=== PATIENT | male | born 1945 | race Caucasian/White ===

== ENCOUNTER → 2018-04-27 | Outpatient (CLI) | payer MEDICARE, BC | END | disposition home or self-care (01) | LOC: LAB SHORT 08:05 → PLD 08:05 | DX: D48.5 Neoplasm of uncertain behavior of skin (principal) | CPT/HCPCS: 88305 ==

== ENCOUNTER → 2019-02-17 | Outpatient (CLI) | payer MEDICARE, BC | LOC: PLD 11:48 → LAB SHORT 11:48 | DX: C44.41 Basal cell carcinoma of skin of scalp and neck (principal) | CPT/HCPCS: 88305 ==

== ENCOUNTER 2019-05-07 07:50 | Inpatient (IN) | payer OTHER, MEDICARE, BC ==
[~2019-05-07] VITALS: Ht 182.9 cm; Wt 102.9 kg
[2019-05-07 08:30] LABS: BASOPHILS ABSOLUTE AUTO 0.04 K/mm3 (0.00-0.23); BASOPHILS PERCENT AUTO 0 % (0-2); EOSINOPHILS ABSOLUTE AUTO 0.18 K/mm3 (0.00-0.68); EOSINOPHILS PERCENT AUTO 2 % (0-6); Hematocrit 38.5 % (37.0-53.0); Hemoglobin 13.6 g/dL (13.5-17.5); IMMATURE GRAN ABSOLUTE AUTO 0.04 K/mm3 (0.00-0.10); IMMATURE GRAN PERCENT AUTO 0 % (0-1); LYMPHOCYTES ABSOLUTE AUTO 0.78 K/mm3 (0.84-5.20); LYMPHOCYTES PERCENT AUTO 8 % (21-46); MONOCYTES ABSOLUTE AUTO 0.83 K/mm3 (0.16-1.47); MONOCYTES PERCENT AUTO 9 % (4-13); Mean Corpuscular HGB 30.6 pg (26.0-34.0); Mean Corpuscular HGB Conc 35.3 g/dL (31.5-36.5); Mean Corpuscular Volume 87 fL (80-100); NEUTROPHILS ABSOLUTE AUTO 7.91 K/mm3 (1.96-9.15); NEUTROPHILS PERCENT AUTO 81 % (41-73); Platelet Count 144 K/mm3 (150-400); RDW Coefficient Variation 12.9 % (11.7-14.2); RDW Standard Deviation 40.5 fL (35.1-46.3); Red Blood Cell Count 4.45 M/mm3 (4.30-5.90); White Blood Cell Count 9.78 K/mm3 (4.00-11.30)
[2019-05-07 08:44] LABS: Influenza A Negative (NEGATIVE); Influenza B Negative (NEGATIVE)
[2019-05-07 08:51] LABS: Alanine Aminotransfer (ALT/SGP 19 U/L (12-78); Albumin, Blood 3.3 g/dL (3.4-5.0); Alk Phos 51 U/L (50-136); Anion Gap 8 mmol/L (6-16); Aspartate Aminotrans (AST/SGOT 35 U/L (12-37); Bilirubin, Total 1.2 mg/dL (0.1-1.0); Blood Urea Nitrogen 18 mg/dL (8-24); Bun/Creatinine Ratio 21.6 (12.0-20.0); CO2, Blood 26 mmol/L (21-32); Calcium, Blood 8.2 mg/dL (8.5-10.1); Chloride, Blood 105 mmol/L (98-108); Creatinine, Blood 0.83 mg/dL (0.60-1.20); Globulin, Blood 3.3 g/dL (2.2-4.0); Glomerular Filtration Rate >60 (60-); Glucose, Blood 163 mg/dL (70-99); International Normalized Ratio 1.07; Potassium, Blood 3.3 mmol/L (3.5-5.5); Prothrombin Time Results 11.4 Sec (9.7-11.5); Sodium, Blood 139 mmol/L (136-145); Total Protein, Blood 6.6 g/dL (6.4-8.2)
[2019-05-07] MEDS ORDERED: CARV25 PO (12:41)
[2019-05-07] MEDS ORDERED: CLOP75 PO (12:41)
[2019-05-07] MEDS ORDERED: ASPIR 8181 MG PO (12:41)
[2019-05-07] MEDS ORDERED: SERT100 PO (12:42)
[2019-05-07] MEDS ORDERED: PROB500 PO (12:42)
[2019-05-07] MEDS ORDERED: EZET10 PO (12:42)
[2019-05-07] MEDS ORDERED: Isosorbide Mono30 MG PO (12:42)
[2019-05-07] MEDS ORDERED: FURO40 PO (12:42)
[2019-05-07] MEDS ORDERED: Vitamin D2000 UNIT PO (12:43)
[2019-05-07] MEDS ORDERED: B Complex-Foli1 EACH PO (12:43)
[2019-05-07] MEDS ORDERED: UBID10 PO (12:43)
[2019-05-07 13:24] LABS: International Normalized Ratio 1.12; Prothrombin Time Results 11.9 Sec (9.7-11.5)
[2019-05-07] MEDS ORDERED: ATOR80 PO (14:34)
[2019-05-07] MEDS ORDERED: NITR.4SL SL (14:37)
[2019-05-07 18:19] LABS: Adenovirus Not Detected (NOT DETECT); Bordetella pertussis Not Detected (NOT DETECT); Chlamydophila pneumoniae Not Detected (NOT DETECT); Coronavirus 229E Not Detected (NOT DETECT); Coronavirus HKU1 Not Detected (NOT DETECT); Coronavirus NL63 Not Detected (NOT DETECT); Coronavirus OC43 Not Detected (NOT DETECT); Human Metapneumovirus Not Detected (NOT DETECT); Human Rhinovirus/Enterovirus Not Detected (NOT DETECT); Influenza A Not Detected (NOT DETECT); Influenza A/2009-H1 Not Detected (NOT DETECT); Influenza A/H1 Not Detected (NOT DETECT); Influenza A/H3 Not Detected (NOT DETECT); Influenza B Not Detected (NOT DETECT); Mycoplasma pneumoniae Not Detected (NOT DETECT); Parainfluenza Virus 1 Not Detected (NOT DETECT); Parainfluenza Virus 2 Not Detected (NOT DETECT); Parainfluenza Virus 3 Not Detected (NOT DETECT); Parainfluenza Virus 4 Not Detected (NOT DETECT); Respiratory Syncytial Virus Detected (NOT DETECT)
--- NOTE | 2019-05-07 18:29 | NUR ---
SHIFT SUMMARY ED ADMIT THIS AFTERNOON. PATIENT SETTLED INTO ROOM THEN TAKEN TO IRRIGATION TEACHER FOR ANGIOGRAM. PATIENT DETERMINED TO NEED BYPASS SURGERY DURING PROCEDURE. COBRA TRANSFER INITIATED. PATIENT HAS TR BAND ON RIGHT RADIAL ACCESS SITE, CHARGE NURSE MANAGING DEFLATION. NO SIGNS OF HEMATOMA. PATIENT GIVEN SL NITRO X1 FOR CHEST/EPIGASTRIC PAIN WITH GOOD RESULT. PATIENT TRANSFERD TO [facility] VIA [facility] TRANSPORT. REPORT CALLED TO DOUGLAS BENITEZ AT [facility].
--- NOTE | 2019-05-07 18:39 | NUR ---
The pt complained of epigastric chest burning this evening before eating his dinner. He stated that this is the kind of pain he had with his last heart attack. PTT drawn at 1630 and new orders from pharmacy for heparin gtt were received and started just at the time the patient c/o his chest discomfort. He c/o chest discomfort 8/10 and also feeling like his difficulty breathing was worse than before. His oxgyen delivery was 2 l/min at the time of onset,and increased gradually to 6 l/min to bring his spo2 above 91% to 95%. As his oxgyen increased, his chest discomfort rating decreased from 8/10 to 6/10. EKG was done. HIs was at the bedside. Dr. Wang was fortuitously in the PCU at the time and gave orders for sublingual Nitro, which was given to him after she had seen the EKG. After the administration of nitroglycerin the pts discomfort was decreased to 4/10 and after 15 minutes he reported that it was "nothing to speak of". He also appeared to be breathing much more easily, and the oxygen delivery was decreased to 4 l/min. Transport team arrived at 1810 and the pt was transferred to [place].
== END 2019-05-07 18:10 | disposition short-term general hospital (02) | DRG 280 ==
LOC: ER 07:50 → PCU 09:58
PROVIDERS: Emergency Medicine; ADMIT Hospitalist
PROC: 4A023N7 Measurement of Cardiac Sampling and Pressure, Left Heart, Percutaneous Approach (ICD-10-PCS; principal; 2019-05-07)
PROC: B2111ZZ Fluoroscopy of Multiple Coronary Arteries using Low Osmolar Contrast (ICD-10-PCS; 2019-05-07)
PROC: 4A033BC Measurement of Arterial Pressure, Coronary, Percutaneous Approach (ICD-10-PCS; 2019-05-07)
DX: I21.4 Non-ST elevation (NSTEMI) myocardial infarction (principal); I50.23 Acute on chronic systolic (congestive) heart failure; I11.0 Hypertensive heart disease with heart failure; I25.2 Old myocardial infarction; I25.10 Atherosclerotic heart disease of native coronary artery without angina pectoris; I71.4 Abdominal aortic aneurysm, without rupture; Z87.891 Personal history of nicotine dependence; G47.33 Obstructive sleep apnea (adult) (pediatric); E87.6 Hypokalemia; I44.0 Atrioventricular block, first degree; J40 Bronchitis, not specified as acute or chronic; E11.9 Type 2 diabetes mellitus without complications; Z90.79 Acquired absence of other genital organ(s); Z95.1 Presence of aortocoronary bypass graft
CPT/HCPCS: 0099U; 36415; 71046; 76937; 80053; 83880; 84145; 84484; 85025; 85347; 85610; 85730; 87804; 93005; 93010; 93458; 93571; 96374; 96375; 99152; 99153; 99285-25; A9270-GY; C1769; C1887; C1894; C8929; J0456; J0696; J1644; J1940; J2250; J2920; J3010; J7030; J7050; Q9957; Q9967

== ENCOUNTER 2019-06-11 16:49 | Emergency (ER) | payer OTHER, MEDICARE, BC ==
[~2019-06-11] VITALS: Ht 182.9 cm; Wt 95.2 kg
[~2019-06-11 16:49] MED LIST: ASPIR 8181 MG PO; ATOR80 PO; B Complex-Foli1 EACH PO; CARV25 PO; CLOP75 PO; EZET10 PO; FURO40 PO; Isosorbide Mono30 MG PO; NITR.4SL SL; PROB500 PO; SERT100 PO; UBID10 PO; Vitamin D2000 UNIT PO
[2019-06-11 17:35] LABS: BASOPHILS ABSOLUTE AUTO 0.03 K/mm3 (0.00-0.23); BASOPHILS PERCENT AUTO 0 % (0-2); EOSINOPHILS ABSOLUTE AUTO 0.16 K/mm3 (0.00-0.68); EOSINOPHILS PERCENT AUTO 2 % (0-6); Hematocrit 39.2 % (37.0-53.0); Hemoglobin 12.6 g/dL (13.5-17.5); IMMATURE GRAN ABSOLUTE AUTO 0.03 K/mm3 (0.00-0.10); IMMATURE GRAN PERCENT AUTO 0 % (0-1); LYMPHOCYTES ABSOLUTE AUTO 0.88 K/mm3 (0.84-5.20); LYMPHOCYTES PERCENT AUTO 11 % (21-46); MONOCYTES ABSOLUTE AUTO 1.08 K/mm3 (0.16-1.47); MONOCYTES PERCENT AUTO 13 % (4-13); Mean Corpuscular HGB 29.6 pg (26.0-34.0); Mean Corpuscular HGB Conc 32.1 g/dL (31.5-36.5); Mean Corpuscular Volume 92 fL (80-100); Mean Platelet Volume 10.8 fL (9.1-12.4); NEUTROPHILS ABSOLUTE AUTO 5.86 K/mm3 (1.96-9.15); NEUTROPHILS PERCENT AUTO 73 % (41-73); Platelet Count 231 K/mm3 (150-400); RDW Coefficient Variation 15.8 % (11.7-14.2); RDW Standard Deviation 52.5 fL (35.1-46.3); Red Blood Cell Count 4.25 M/mm3 (4.30-5.90); White Blood Cell Count 8.04 K/mm3 (4.00-11.30)
[2019-06-11 17:48] LABS: Alanine Aminotransfer (ALT/SGP 12 U/L (12-78); Albumin, Blood 3.4 g/dL (3.4-5.0); Albumin/Globulin Ratio 1.1 (0.8-1.8); Alk Phos 62 U/L (50-136); Anion Gap 8 mmol/L (6-16); Aspartate Aminotrans (AST/SGOT 13 U/L (12-37); Bilirubin, Total 0.9 mg/dL (0.1-1.0); Blood Urea Nitrogen 16 mg/dL (8-24); Bun/Creatinine Ratio 20.6 (12.0-20.0); CO2, Blood 24 mmol/L (21-32); Calcium, Blood 9.2 mg/dL (8.5-10.1); Chloride, Blood 105 mmol/L (98-108); Creatinine, Blood 0.78 mg/dL (0.60-1.20); Globulin, Blood 3.2 g/dL (2.2-4.0); Glomerular Filtration Rate >60 (60-); Glucose, Blood 122 mg/dL (70-99); Potassium, Blood 4.4 mmol/L (3.5-5.5); Sodium, Blood 137 mmol/L (136-145); Total Protein, Blood 6.6 g/dL (6.4-8.2); Troponin I <0.015 ng/mL (0.000-0.040)
[2019-06-11] MEDS ORDERED: Lasix20 MG PO (18:46)
[2019-06-11] MEDS ORDERED: K-Dur10 MEQ PO (18:46)
== END 2019-06-11 19:18 | disposition home or self-care (01) ==
LOC: ER 16:49
PROVIDERS: Emergency Medicine
DX: I48.91 Unspecified atrial fibrillation (principal); I25.10 Atherosclerotic heart disease of native coronary artery without angina pectoris; I25.2 Old myocardial infarction; I50.9 Heart failure, unspecified; J45.909 Unspecified asthma, uncomplicated; Z79.899 Other long term (current) drug therapy; Z79.01 Long term (current) use of anticoagulants; Z79.82 Long term (current) use of aspirin; Z95.1 Presence of aortocoronary bypass graft
CPT/HCPCS: 36415; 71046; 80053; 83880; 84484; 85025; 93005; 93010; 96374; 99285-25; J1940

== ENCOUNTER 2019-06-23 09:33 | Emergency (ER) | payer OTHER, MEDICARE, BC ==
[~2019-06-23] VITALS: Ht 182.9 cm; Wt 97.5 kg
[~2019-06-23 09:33] MED LIST changes: +K-Dur10 MEQ PO; +Lasix20 MG PO
[2019-06-23 10:04] LABS: BASOPHILS ABSOLUTE AUTO 0.04 K/mm3 (0.00-0.23); BASOPHILS PERCENT AUTO 0 % (0-2); EOSINOPHILS ABSOLUTE AUTO 0.07 K/mm3 (0.00-0.68); EOSINOPHILS PERCENT AUTO 1 % (0-6); Hematocrit 41.6 % (37.0-53.0); Hemoglobin 13.1 g/dL (13.5-17.5); IMMATURE GRAN ABSOLUTE AUTO 0.07 K/mm3 (0.00-0.10); IMMATURE GRAN PERCENT AUTO 1 % (0-1); LYMPHOCYTES ABSOLUTE AUTO 0.52 K/mm3 (0.84-5.20); LYMPHOCYTES PERCENT AUTO 4 % (21-46); MONOCYTES PERCENT AUTO 7 % (4-13); Mean Corpuscular HGB 28.4 pg (26.0-34.0); Mean Corpuscular HGB Conc 31.5 g/dL (31.5-36.5); Mean Corpuscular Volume 90 fL (80-100); Mean Platelet Volume 10.9 fL (9.1-12.4); NEUTROPHILS ABSOLUTE AUTO 11.81 K/mm3 (1.96-9.15); NEUTROPHILS PERCENT AUTO 88 % (41-73); Platelet Count 194 K/mm3 (150-400); RDW Coefficient Variation 14.6 % (11.7-14.2); RDW Standard Deviation 47.9 fL (35.1-46.3); Red Blood Cell Count 4.62 M/mm3 (4.30-5.90); White Blood Cell Count 13.51 K/mm3 (4.00-11.30)
[2019-06-23] MEDS ORDERED: ELIQUIS5 MG PO (10:09)
[2019-06-23] MEDS ORDERED: EZET10 PO (10:09)
[2019-06-23] MEDS ORDERED: Crestor40 MG PO (10:10)
[2019-06-23] MEDS ORDERED: ERGO400 (10:10)
[2019-06-23] MEDS ORDERED: FOLI1 PO (10:10)
[2019-06-23] MEDS ORDERED: FERSU300 PO (10:10)
[2019-06-23] MEDS ORDERED: ZINC15 (10:11)
[2019-06-23] MEDS ORDERED: ASCO500 (10:11)
[2019-06-23] MEDS ORDERED: CYAN500 (10:11)
[2019-06-23] MEDS ORDERED: LASIX40 MG PO (10:13)
[2019-06-23] MEDS ORDERED: POTA8 (10:13)
[2019-06-23] MEDS ORDERED: Amiodarone HCl200 MG PO (10:14)
[2019-06-23 10:17] LABS: Troponin I <0.015 ng/mL (0.000-0.040)
[2019-06-23 10:18] LABS: Alanine Aminotransfer (ALT/SGP 18 U/L (12-78); Albumin, Blood 3.7 g/dL (3.4-5.0); Albumin/Globulin Ratio 1.2 (0.8-1.8); Alk Phos 58 U/L (50-136); Anion Gap 9 mmol/L (6-16); Aspartate Aminotrans (AST/SGOT 21 U/L (12-37); Blood Urea Nitrogen 17 mg/dL (8-24); Bun/Creatinine Ratio 17.8 (12.0-20.0); CO2, Blood 24 mmol/L (21-32); Calcium, Blood 8.8 mg/dL (8.5-10.1); Chloride, Blood 105 mmol/L (98-108); Creatinine, Blood 0.96 mg/dL (0.60-1.20); Glomerular Filtration Rate >60 (60-); Glucose, Blood 140 mg/dL (70-99); Potassium, Blood 3.8 mmol/L (3.5-5.5); Sodium, Blood 138 mmol/L (136-145); Total Protein, Blood 6.7 g/dL (6.4-8.2)
[2019-06-24] MEDS ORDERED: OXYC5 (11:59)
[2019-06-24] MEDS ORDERED: FUROSEMIDE20 MG PO (13:55)
[2019-06-24] MEDS ORDERED: METOPROLOL TART25 MG PO (13:56)
[2019-06-24] MEDS ORDERED: ROSUVASTATIN CA40 MG PO (13:56)
== END 2019-06-23 14:03 | disposition home or self-care (01) ==
LOC: ER 09:33
PROVIDERS: Emergency Medicine
DX: R07.9 Chest pain, unspecified (principal); Z87.891 Personal history of nicotine dependence; Z95.1 Presence of aortocoronary bypass graft; Z88.8 Allergy status to other drugs, medicaments and biological substances; Z79.899 Other long term (current) drug therapy
CPT/HCPCS: 36415; 71046; 71260; 80053; 83880; 84484; 85025; 93005; 93010; 99285-25; Q9967

== ENCOUNTER 2019-06-24 11:43 | Inpatient (IN) | payer OTHER, MEDICARE, BC ==
[~2019-06-24] VITALS: Ht 180.3 cm; Wt 97.7 kg
[~2019-06-24 11:43] MED LIST changes: +ASCO500; +Amiodarone HCl200 MG PO; +CYAN500; +Crestor40 MG PO; +ELIQUIS5 MG PO; +ERGO400; +FERSU300 PO; +FOLI1 PO; +LASIX40 MG PO; +POTA8; +ZINC15
[2019-06-24] MEDS ORDERED: OXYC5 (11:59)
[2019-06-24 12:19] LABS: BASOPHILS ABSOLUTE AUTO 0.05 K/mm3 (0.00-0.23); BASOPHILS PERCENT AUTO 0 % (0-2); EOSINOPHILS ABSOLUTE AUTO 0.09 K/mm3 (0.00-0.68); EOSINOPHILS PERCENT AUTO 1 % (0-6); Hematocrit 42.5 % (37.0-53.0); Hemoglobin 13.5 g/dL (13.5-17.5); IMMATURE GRAN ABSOLUTE AUTO 0.07 K/mm3 (0.00-0.10); IMMATURE GRAN PERCENT AUTO 1 % (0-1); LYMPHOCYTES ABSOLUTE AUTO 0.61 K/mm3 (0.84-5.20); LYMPHOCYTES PERCENT AUTO 4 % (21-46); MONOCYTES ABSOLUTE AUTO 1.53 K/mm3 (0.16-1.47); MONOCYTES PERCENT AUTO 11 % (4-13); Mean Corpuscular HGB 28.1 pg (26.0-34.0); Mean Corpuscular HGB Conc 31.8 g/dL (31.5-36.5); Mean Corpuscular Volume 89 fL (80-100); Mean Platelet Volume 11.2 fL (9.1-12.4); NEUTROPHILS ABSOLUTE AUTO 12.27 K/mm3 (1.96-9.15); NEUTROPHILS PERCENT AUTO 84 % (41-73); Platelet Count 220 K/mm3 (150-400); RDW Coefficient Variation 14.7 % (11.7-14.2); RDW Standard Deviation 47.4 fL (35.1-46.3); White Blood Cell Count 14.62 K/mm3 (4.00-11.30)
[2019-06-24 12:28] LABS: Alanine Aminotransfer (ALT/SGP 18 U/L (12-78); Albumin, Blood 3.6 g/dL (3.4-5.0); Albumin/Globulin Ratio 1.1 (0.8-1.8); Alk Phos 62 U/L (50-136); Anion Gap 8 mmol/L (6-16); Aspartate Aminotrans (AST/SGOT 20 U/L (12-37); Bilirubin, Total 0.8 mg/dL (0.1-1.0); Blood Urea Nitrogen 16 mg/dL (8-24); Bun/Creatinine Ratio 14.7 (12.0-20.0); CO2, Blood 27 mmol/L (21-32); Chloride, Blood 101 mmol/L (98-108); Creatinine, Blood 1.09 mg/dL (0.60-1.20); Globulin, Blood 3.3 g/dL (2.2-4.0); Glomerular Filtration Rate >60 (60-); Glucose, Blood 167 mg/dL (70-99); Potassium, Blood 3.7 mmol/L (3.5-5.5); Sodium, Blood 136 mmol/L (136-145); Total Protein, Blood 6.9 g/dL (6.4-8.2); Troponin I <0.015 ng/mL (0.000-0.040)
[2019-06-24] MEDS ORDERED: FUROSEMIDE20 MG PO (13:55)
[2019-06-24] MEDS ORDERED: ROSUVASTATIN CA40 MG PO (13:56)
[2019-06-24] MEDS ORDERED: METOPROLOL TART25 MG PO (13:56)
--- NOTE | 2019-06-24 18:06 | NUR ---
DR TENA CALLED FOR ADMIT ORDERS FOR PT
--- NOTE | 2019-06-25 05:58 | NUR ---
SHIFT SUMMARY PT SLEEPING IN ROOM COMFORTABLY AT THIS TIME. NO ACUTE CHNAGES IN STATUS T/O GNITH. PT SLEPT WELL. DENIED CP OR SOB. RESP EVEN SLIGHTLY TACHY AT TIMES W/ 2L NC AND SATS >92%. PT WORE CPAP T/O NIGHT. TOLERATED WELL. AMIODARONE GTT INFUSING IN PIV PER EMAR. PT HR NO AVG 80-90 REMAINS IN AFIB. PT DENIED OTHER NEEDS. MADE NPO AT MIDNIGHT. CALL LIGHT IN REACH
--- NOTE | 2019-06-25 17:25 | NUR ---
SHIFT NOTE PT HAS REPORTED LESS SOB TODAY THAN YESTERDAY. PT DOES APPEAR TO HAVE RESIDUAL ANXIETY, BUT LESS RESLTESS LEG R/T TO ANXIETY. PT OTHERWISE IS RESTING WELL IN BED. DENIES CP. VSS. PT HAS BEEN EDUCATED ABOUT MEDICATION CHANGES. PT'S S/O JEAN-PIERRE HOME CPAP IN HE STATES THAT HE WAS NOT DOING WELL WITH THE M SERIES CPAP WE HAVE HERE AT FACILITY. PT APPEARS TO BE TOLERATING HOME CPAP WELL, AND IS RESTING COMFORTABLY. PT A/O X4 ANSWERS ALL QUESTIONS APPROPRIATELY. PT HAS BEEN USING URINAL AT BEDSIDE.
--- NOTE | 2019-06-26 05:33 | NUR ---
SHIFT SUMMARY PT RESTING IN ROOM COMFORTABLY AT THIS TIME. NO ACUTE CHNAGES IN STATUS T/O NIGHT. PT SLEPT VERY WELL. DENIED CP OR SOB. PT WORE OWN CPAP. RESP EVEN UNLABORED ON CPAP W/ SATS >92%. DENIED OTHER NEEDS. CALL LIGHT IN REACH.
--- NOTE | 2019-06-26 16:54 | NUR ---
SHIFT SUMMARY PT A&O; CALM AND COOPERATIVE WITH CARE. PT RESTING IN BED DURING SHIFT. UP TO BATHROOM SBA. PT REPORTS SOB AT REST; ON 2L O2 VIA NC AND ON CPAP WHILE SLEEPING, SPO2 >92%. PT PLANS FOR HOME O2 EVALUATION TOMORROW. PT DENIES PAIN; CHEST PAIN/PRESSURE; DIZZINESS AND NASUEA. PT RECEIVING PO AMIODARONE FOR REATE CONTROL. PT APPEARS ANXIOUS WHEN DISCUSSING DISCHARGE PLANS; WHEN ASKED IF HE IS FEELING ANXIOUS HE STATES "A LITTLE". VSS. NO OTHER ACUTE CHANGES NOTED AT THIS TIME. WILL CONTINUE TO MONITOR UNTIL REPORT GIVEN TO ONCOMING RN.
--- NOTE | 2019-06-27 06:38 | NUR ---
SHIFT SUMMARY NO ACUTE CHANGES NOTED THROUGH THE NIGHT. VSS, PT DENIES CP, AFIB WOCCASIONAL PVC'S REPORTED BY OPERATIONAL REVIEW SERGEANT THROUGH THE NIGHT. PT HAS WORN HIS CPAP THROUGH THE NIGHT, O2 SATS REMAIN >92%. PT IS TOLERATING PO INTAKE, VOIDING WNL. CALL LIGHT IN REACH, [facility]
[2019-06-27] MEDS ORDERED: MULVITB PO (15:29)
[2019-06-27] MEDS ORDERED: POTCHL20ER PO (15:31)
[2019-06-27] MEDS ORDERED: TORSE20 PO (15:31)
[2019-06-27] MEDS ORDERED: CARV3.125 PO (15:32)
[2019-06-27] MEDS ORDERED: LOSA25 PO (15:33)
[2019-06-27] MEDS ORDERED: MELATONIN5 M1 PO (15:34)
--- NOTE | 2019-06-27 16:04 | NUR ---
UPDATE PT ALERT AND ORIENTED. VS STABLE. HR AFIB 80-90'S. BP STABLE. PT DENIES ANY PAIN. HOME O2 EVALUATION COMPLETE THIS AFTERNOON AND [place] IN TO SET UP HOME O2. DR. CUEVA CALLED AND ASKED ABOUT DISCHARGE. NEW ORDERS FOR DISCHARGE DOSE OF AMIODARONE. DISCHARGE INSTRUCTIONS PROVIDED TO PATIENT. EDUCAITON PROVIDED ON NEW MEDICATIONS. ALL QUESTIONS ANSWERED. IV REMOVED. PT TAKEN OUT BY WHEELCHAIR.
== END 2019-06-27 16:20 | disposition home or self-care (01) | DRG 308 ==
LOC: ER 11:43 → PCU 16:12
PROVIDERS: Emergency Medicine; ADMIT Internal Medicine
DX: I48.20 Chronic atrial fibrillation, unspecified (principal); I50.43 Acute on chronic combined systolic (congestive) and diastolic (congestive) heart failure; I25.10 Atherosclerotic heart disease of native coronary artery without angina pectoris; I11.0 Hypertensive heart disease with heart failure; I25.5 Ischemic cardiomyopathy; E11.9 Type 2 diabetes mellitus without complications; E78.5 Hyperlipidemia, unspecified; G47.33 Obstructive sleep apnea (adult) (pediatric); J45.909 Unspecified asthma, uncomplicated; F43.10 Post-traumatic stress disorder, unspecified; I71.4 Abdominal aortic aneurysm, without rupture; I27.20 Pulmonary hypertension, unspecified; I08.3 Combined rheumatic disorders of mitral, aortic and tricuspid valves; Z88.8 Allergy status to other drugs, medicaments and biological substances; Z95.1 Presence of aortocoronary bypass graft; Z95.5 Presence of coronary angioplasty implant and graft; Z87.891 Personal history of nicotine dependence; Z79.899 Other long term (current) drug therapy; Z79.01 Long term (current) use of anticoagulants
CPT/HCPCS: 71046; 80053; 82947; 84484; 85025; 93005; 93010; 94660; 94761; 94762; 99285-25; A9270; A9270-GY; C8929; J0282; J1940; J7060; Q9957

== ENCOUNTER 2019-08-10 06:17 | Day surgery (SDC) | payer OTHER ==
[~2019-08-10] VITALS: Ht 177.8 cm; Wt 90.0 kg
[~2019-08-10 06:17] MED LIST changes: +ALBU90OI INH; +B-12500 MCG PO; +Bisoprolol Fumar5 MG PO; +CARV3.125 PO; +COLCHICINE0.6 MG PO; +FUROSEMIDE20 MG PO; +Flonase 0.05% N16 GM; +Galzin25 MG PO; +LOSA25 PO; +MELATONIN5 M1 PO; +METOPROLOL TART25 MG PO; +MULVITB PO; +OXYC5; +POTCHL20ER PO; +ROSUVASTATIN CA40 MG PO; +TORSE20 PO
--- NOTE | 2019-08-10 08:17 | NUR ---
DR. BRUMFIELD SCRUBBED OUT.
--- NOTE | 2019-08-10 09:34 | NUR ---
DISCHARGE PT REMAINED A&O DURING RECOVERY. POST EKG COMPLETE-PT REMAINS IN SR/FELICITA. IV DC'D WITH CANULA IN TACT. PT ABLE TO DRESS SELF AND ABULATE WITH STEADY GAIT. DISCHARGE PAPERWORK GONE OVER WITH PT. PT VERBALLY STATED THE UNDERSTANDING OF THE DISCHARGE EDUCATION AND DENIED ANY QUESTIONS AT THIS TIME. PT WHEELED OUT BY THIS NURSE.
== END 2019-08-10 22:46 | disposition home or self-care (01) ==
LOC: MHTC 06:17
DX: I48.20 Chronic atrial fibrillation, unspecified (principal); I25.2 Old myocardial infarction; G47.33 Obstructive sleep apnea (adult) (pediatric); J45.909 Unspecified asthma, uncomplicated; I08.3 Combined rheumatic disorders of mitral, aortic and tricuspid valves; E11.9 Type 2 diabetes mellitus without complications; E78.5 Hyperlipidemia, unspecified; I11.0 Hypertensive heart disease with heart failure; I50.9 Heart failure, unspecified; Z79.01 Long term (current) use of anticoagulants; Z95.1 Presence of aortocoronary bypass graft; Z79.899 Other long term (current) drug therapy; Z87.891 Personal history of nicotine dependence
CPT/HCPCS: 92960; 93005; 93010; 99152; J2250; J3010; J7030

== ENCOUNTER 2020-01-27 09:19 | Day surgery (SDC) | payer MEDICARE, BC ==
[~2020-01-27] VITALS: Ht 177.8 cm; Wt 95.5 kg
--- NOTE | 2020-01-27 13:16 | NUR ---
PT MEDICATED WITH TYLENOL 650MG PO ORDERED FOR L CHEST WALL PAIN 06/16. VSS. PT SITTING IN RECLINER CHAIR EATING LUNCH. PT PROVIDER WITH ICE PACK. WILL CONTINUE TO MONITOR
--- NOTE | 2020-01-27 14:06 | NUR ---
PREVIOUSLY MEDICATED WITH NORCO 5/325 MG PO FOR 4/10 PAIN INCREASES WITH MOVEMENT PER PT. LEFT ARM PLACED INTO SLING, ICE REMOVED AT THIS TIME. PRESSURE DRESSING REMAINS ON. NO SIGNS OF BLEEDING OR OOZING NOTED. BP RUNNING LOW, DR. GRIMES INFORMED.
--- NOTE | 2020-01-27 15:10 | NUR ---
REPORT GIVEN TO SURGICAL FLOOR RN. PT TAKEN TO ROOM 210 VIA W/C. LEFT ARM IN SLING AT TIME OF TRANSFER. PT ABLE TO AMBULATE WITH STEADY GAIT TO RESTROOM PRIOR TO TRANSFER. DENIES FEELING LIGHTHEADED OR DIZZY. ALL PERSONAL BELONGINGS SENT WITH PT TO NEW ROOM. NO DISTRESS NOTED AT TIME OF TRANSFER.
--- NOTE | 2020-01-27 15:20 | NUR ---
pt arrived to room [facility]p icd placement pt has bulky pressure dressing to l chest wall c/d/i also wearing a sling pt reports pain 4/10 at this time stated from moving around its worse then it was after the med given pt oriented to room layout
--- NOTE | 2020-01-27 15:56 | NUR ---
pt visiting with s/o
--- NOTE | 2020-01-27 16:44 | NUR ---
pt req pain meds 1 tab po norco given
--- NOTE | 2020-01-27 17:39 | NUR ---
pt eating dinner
--- NOTE | 2020-01-28 06:15 | NUR ---
PATIENT HAS SLEPT MOST OF THE NIGHT, WEARS HIS CPAP MASK, AND IS UP TO BR TO VOID. LEFT CHEST WALL WITH PRESSURE DRESSING DRY AND INTACT. MONITOR SHOWS SINUS FELICITA. NO ACUTE CHANGES, PATIENT IS READY TO DISCHARGE HOME TODAY. CALL LIGHT IN REACH.
--- NOTE | 2020-01-28 14:15 | NUR ---
DISCHARGE SUMMARY PT A&OX4, VSS, LEFT VIA WC WITH OIL HOUSE ATTENDANT TO GO HOME WITH , WITH ALL PERSONAL POSSESSIONS INCLUDING DC PACKET AND DR CORNELIO LLAMAS INSTRUCTIONS. DC INSTRUCTIONS PROVIDED. PT REP UNDERSTANDING THOSE INSTRUCTIONS INCLUDING FU WITH DR GRIMES IN 1 WK, NO DRIVING, LEAVE DRESSING IN PLACE, NO SHOWER/TUB/JACUZZI, WHEN TO CALL THE DR AND SEE ER HELP. IV DC'D.
== END 2020-01-28 14:33 | disposition home or self-care (01) ==
LOC: MHTC 09:19 → SURS 15:22 → MHTC 01-28 14:33
DX: I44.0 Atrioventricular block, first degree (principal); I25.5 Ischemic cardiomyopathy; I25.2 Old myocardial infarction; I25.10 Atherosclerotic heart disease of native coronary artery without angina pectoris; E11.9 Type 2 diabetes mellitus without complications; I11.0 Hypertensive heart disease with heart failure; J45.909 Unspecified asthma, uncomplicated; G47.33 Obstructive sleep apnea (adult) (pediatric); Z87.891 Personal history of nicotine dependence; Z88.8 Allergy status to other drugs, medicaments and biological substances; Z79.01 Long term (current) use of anticoagulants; Z79.899 Other long term (current) drug therapy; I08.3 Combined rheumatic disorders of mitral, aortic and tricuspid valves; I27.20 Pulmonary hypertension, unspecified; I50.20 Unspecified systolic (congestive) heart failure; I48.0 Paroxysmal atrial fibrillation; Z95.5 Presence of coronary angioplasty implant and graft; I71.4 Abdominal aortic aneurysm, without rupture; E66.9 Obesity, unspecified; Z68.31 Body mass index [BMI] 31.0-31.9, adult; F43.10 Post-traumatic stress disorder, unspecified
CPT/HCPCS: 33249; 71045; 71046; 76937; 99152; 99153; A9270; A9270-GY; C1721; C1781; C1894; C1895; C1898; J0690; J1644; J2250; J3010; J7040

== ENCOUNTER → 2020-02-10 | Outpatient (CLI) | payer MEDICARE, BC ==
[2020-02-10 14:08] LABS: Protein, Urine Quantitative <5.0 mg/dL (0.0-11.9)
== END | disposition home or self-care (01) ==
LOC: LAB SHORT 11:19 → OLS 11:19 → LAB FUT 02-05 09:10
PROVIDERS: Internal Medicine Nephrology
DX: N18.30 Chronic kidney disease, stage 3 unspecified (principal); D63.1 Anemia in chronic kidney disease; N25.81 Secondary hyperparathyroidism of renal origin; E55.9 Vitamin D deficiency, unspecified; E78.00 Pure hypercholesterolemia, unspecified; R76.9 Abnormal immunological finding in serum, unspecified; R94.5 Abnormal results of liver function studies; R94.6 Abnormal results of thyroid function studies; G60.9 Hereditary and idiopathic neuropathy, unspecified; D51.8 Other vitamin B12 deficiency anemias; D52.8 Other folate deficiency anemias; D50.9 Iron deficiency anemia, unspecified; E87.6 Hypokalemia
CPT/HCPCS: 81050; 82043; 82570; 84156; 86335

== ENCOUNTER 2020-06-27 13:18 | Emergency (ER) | payer OTHER, MEDICARE, BC ==
[~2020-06-27] VITALS: Ht 182.9 cm; Wt 100.7 kg
[2020-06-27 14:56] LABS: BASOPHILS ABSOLUTE AUTO 0.04 K/mm3 (0.00-0.23); BASOPHILS PERCENT AUTO 1 % (0-2); EOSINOPHILS ABSOLUTE AUTO 0.11 K/mm3 (0.00-0.68); EOSINOPHILS PERCENT AUTO 2 % (0-6); Hematocrit 40.6 % (37.0-53.0); Hemoglobin 13.7 g/dL (13.5-17.5); IMMATURE GRAN ABSOLUTE AUTO 0.02 K/mm3 (0.00-0.10); IMMATURE GRAN PERCENT AUTO 0 % (0-1); LYMPHOCYTES ABSOLUTE AUTO 0.74 K/mm3 (0.84-5.20); LYMPHOCYTES PERCENT AUTO 11 % (21-46); MONOCYTES ABSOLUTE AUTO 0.51 K/mm3 (0.16-1.47); MONOCYTES PERCENT AUTO 8 % (4-13); Mean Corpuscular HGB 31.4 pg (26.0-34.0); Mean Corpuscular HGB Conc 33.7 g/dL (31.5-36.5); Mean Corpuscular Volume 93 fL (80-100); Mean Platelet Volume 9.8 fL (9.1-12.4); NEUTROPHILS ABSOLUTE AUTO 5.05 K/mm3 (1.96-9.15); NEUTROPHILS PERCENT AUTO 78 % (41-73); Platelet Count 133 K/mm3 (150-400); RDW Coefficient Variation 13.6 % (11.7-14.2); RDW Standard Deviation 46.5 fL (35.1-46.3); Red Blood Cell Count 4.36 M/mm3 (4.30-5.90); White Blood Cell Count 6.47 K/mm3 (4.00-11.30)
[2020-06-27 15:16] LABS: Alanine Aminotransfer (ALT/SGP 38 U/L (12-78); Albumin, Blood 3.9 g/dL (3.4-5.0); Albumin/Globulin Ratio 1.4 (0.8-1.8); Alk Phos 44 U/L (50-136); Anion Gap 3 mmol/L (6-16); Aspartate Aminotrans (AST/SGOT 30 U/L (12-37); Bilirubin, Total 0.6 mg/dL (0.1-1.0); Blood Urea Nitrogen 15 mg/dL (8-24); Bun/Creatinine Ratio 14.9 (12.0-20.0); CO2, Blood 27 mmol/L (21-32); Calcium, Blood 8.7 mg/dL (8.5-10.1); Chloride, Blood 110 mmol/L (98-108); Creatinine, Blood 1.01 mg/dL (0.60-1.20); Globulin, Blood 2.7 g/dL (2.2-4.0); Glomerular Filtration Rate >60 (60-); Glucose, Blood 125 mg/dL (70-99); Potassium, Blood 4.4 mmol/L (3.5-5.5); Sodium, Blood 140 mmol/L (136-145); Total Protein, Blood 6.6 g/dL (6.4-8.2)
== END 2020-06-27 20:01 | disposition home or self-care (01) ==
LOC: ER 13:18
PROVIDERS: Physician Assistant
DX: R60.0 Localized edema (principal); I25.10 Atherosclerotic heart disease of native coronary artery without angina pectoris; I25.2 Old myocardial infarction; I50.9 Heart failure, unspecified; Z88.6 Allergy status to analgesic agent; Z88.8 Allergy status to other drugs, medicaments and biological substances; Z79.899 Other long term (current) drug therapy; Z87.891 Personal history of nicotine dependence
CPT/HCPCS: 36415; 73130; 80053; 83880; 84484; 85025; 93971; 99284-25

== ENCOUNTER → 2020-08-27 | Outpatient (CLI) | payer MEDICARE, BC | END | disposition home or self-care (01) | LOC: LAB SHORT 08:35 → LAB 08:35 | DX: C44.519 Basal cell carcinoma of skin of other part of trunk (principal) | CPT/HCPCS: 88305 ==